=== PATIENT | female | born 1980 | race Caucasian/White ===

== ENCOUNTER 2019-01-17 01:13 | Emergency (ER) | payer BC ==
[2019-01-17 01:21] VITALS: BP 131/91; PULSE 65; TEMP 97.9; BMI 31.6
[2019-01-17] MEDS ORDERED: KETOROLAC TROMETHAMINE 60 MG/2 ML VIAL ONE (01:36)
[2019-01-17] MEDS ORDERED: CYCLOBENZAPRINE HCL 10 MG TABLET (FP) ONE (01:37)
--- NOTE | 2019-01-17 01:41 | PDOC ---
History of Present Illness - General Chief Complaint: Pain, Acute Stated Complaint: BACK/CHEST PAIN History Source: Patient Exam Limitations: No Limitations - History of Present Illness Initial Comments: This is a 38-year-old female who comes in complaining of low back pain times several months. Patient denies any trauma or injury to the back. Patient said that sometimes when she takes a right deep breath it makes the pain worse and she feels short of breath. Patient has not been taking anything for the pain. Patient did see her primary care doctor about a month ago and had a workup including labs, urine and said everything came back normal. Patient however was not started on anything for the pain patient is otherwise healthy Allergies: as per nursing notes Past Medical History: none Social history: Lives with family. No smoking. No alcohol. No illicit drugs. Surgical history: None General: No fevers or chills, no weakness, no weight loss HEENT: No change in vision. No sore throat,. No ear pain CardioVascular: no chest discomfort. No shortness of breath Respiratory:No cough, or wheezing. Gastrointestinal: no nausea, vomiting, diarrhea or constipation, No rectal bleeding Genitourinary: No dysuria, hematuria, or frequency Musculoskeletal: Low back pain Neurologic: No headache, vertigo, dizziness or loss of consciousness Psychiatric: nor depression Skin: No rashes or easy bruising Endocrine: no increased thirst or abnormal weight change Allergic: no skin or latex allergy All other systems reviewed and normal Exam: General: Well-nourished well-developed individual, no acute distress HEENT: Throat: Normal, tonsils normal, no erythema or exudate Neck: Supple, no meningeal signs, no lymphadenopathy Eyes::Pupils equal reactive and round, extraocular motion intact Chest: Nontender to palpation Cardiac: S1-S2 normal, regular rate and rhythm, no murmurs rubs or gallops Respiratory: Lungs clear to auscultation bilateral Abdomen: Soft, nondistended, normal bowel sounds, there is no tenderness on palpation diffusely Back: There is no CVA tenderness, there is no tenderness on palpation bilateral paraspinal area or thoracic lumbar or sacral spine. Extremities: Warm, dry, no cyanosis, clubbing, or edema Skin: No rashes Neuro: Alert and oriented x3, CN II - XII intact, nonfocal exam with normal strength, normal sensation, normal reflexes, normal gait, Psych: Normal mood and affect Assessment and plan: This is a 38-year-old female with several months of low back pain who comes in for evaluation. Patient had a normal exam, normal vitals and I gave her a anti-inflammatory Toradol and a muscle relaxant. Patient instructed to continue the medication and follow up with her primary care doctor in 1 week if not improved. Past History - Past Medical History Allergies/Adverse Reactions: Allergies Allergy/AdvReac Type Severity Reaction Status Date / Time No Known Allergies Allergy Unverified 01/17/19 01:14 Home Medications: Ambulatory Orders NK [No Known Home Medication] 01/17/19 COPD: No - Suicide/Smoking/Psychosocial Hx Smoking History: Current every day smoker Number of Cigarettes Smoked Daily: 2 Information on smoking cessation initiated: Yes *Physical Exam - Vital Signs Last Vital Signs Temp Pulse Resp BP Pulse Ox 97.9 F 65 16 131/91 100 01/17/19 01:16 01/17/19 01:16 01/17/19 01:16 01/17/19 01:01/17/19 01:16 *DC/Admit/Observation/Transfer Diagnosis at time of Disposition: Back pain Qualifiers: Back pain location: low back pain Chronicity: chronic Back pain laterality: bilateral Sciatica presence: without sciatica Qualified Code(s): M54.5 - Low back pain; G89.29 - Other chronic pain - Discharge Dispostion Disposition: HOME Condition at time of disposition: Stable Decision to Admit order: No - Referrals Referrals: Alexandra Reaves [Primary Care Provider] - - Patient Instructions Additional Instructions: Take Aleve 2 tablets twice a day with food don't take on an empty stomach. Take medication for 1 week. Take Flexeril one tablet before bed. This is a muscle relaxant.. Follow-up with your primary care doctor in 1 week if not improved Return to the emergency department immediately with ANY new, persistent or worsening symptoms. Continue any medications as previously prescribed by your physician. You should follow up with your primary doctor as soon as possible regarding today's emergency department visit. . Please make sure your doctor reviews the results of your emergency evaluation. Thank you for coming to the Emergency Department today for your care. It was a pleasure to see you today. Please note that your evaluation is INCOMPLETE until you follow-up with your doctor. - Post Discharge Activity
[2019-01-17] MEDS ORDERED: KETOROLAC TROMETHAMINE 60 MG/2 ML VIAL IM ONE (01:44)
[2019-01-17] MEDS ORDERED: CYCLOBENZAPRINE HCL 10 MG TABLET (FP) PO ONE (01:44)
== END 2019-01-17 01:47 | disposition home or self-care (01) ==
LOC: FER 01:13
PROC: 3E0233Z Introduction of Anti-inflammatory into Muscle, Percutaneous Approach (ICD-10-PCS; principal; 2019-01-17)
DX: M54.5 Low back pain (principal); G89.29 Other chronic pain; F17.210 Nicotine dependence, cigarettes, uncomplicated
CPT/HCPCS: 96372; 99282-25